=== PATIENT | male | born 1960 | race Caucasian/White ===

== ENCOUNTER → 2024-05-21 13:49 | Outpatient (REF) | payer OTHER, SELFPAY | LOC: HWRAD 13:49 | PROVIDERS: ATTENDING PHYSICIAN Nurse Practitioner Acute Care; FAMILY PHYSICIAN Internal Medicine | DX: M48.062 Spinal stenosis, lumbar region with neurogenic claudication (principal); M54.16 Radiculopathy, lumbar region; M43.16 Spondylolisthesis, lumbar region | CPT/HCPCS: 72131 ==